=== PATIENT | female | born 1945 | race Caucasian/White ===

== ENCOUNTER → 2023-11-05 07:04 | Outpatient (REF) | payer MEDICARE, SELFPAY | LOC: PAVMRI 07:04 | PROVIDERS: ATTENDING PHYSICIAN Pain Medicine Interventional Pain Medicine; FAMILY PHYSICIAN Nurse Practitioner Adult Health | DX: M54.16 Radiculopathy, lumbar region (principal) | CPT/HCPCS: 72148 ==

== ENCOUNTER → 2024-02-02 14:50 | Outpatient (REF) | payer MEDICARE, SELFPAY | LOC: RCS 14:50 | PROVIDERS: ATTENDING PHYSICIAN Nurse Practitioner Adult Health | DX: I08.0 Rheumatic disorders of both mitral and aortic valves (principal); I44.7 Left bundle-branch block, unspecified | CPT/HCPCS: 93306 ==

== ENCOUNTER → 2024-03-24 09:17 | Outpatient (REF) | payer MEDICARE, SELFPAY | LOC: RAD 09:17 | PROVIDERS: ATTENDING PHYSICIAN Physician Assistant; FAMILY PHYSICIAN Nurse Practitioner Adult Health | DX: M80.00XA Age-related osteoporosis with current pathological fracture, unspecified site, initial encounter for fracture (principal); M81.0 Age-related osteoporosis without current pathological fracture | CPT/HCPCS: 77080 ==

== ENCOUNTER → 2024-03-30 11:09 | Outpatient (REF) | payer MEDICARE, SELFPAY | LOC: WDC 11:09 | PROVIDERS: ATTENDING PHYSICIAN Nurse Practitioner Adult Health | DX: Z12.31 Encounter for screening mammogram for malignant neoplasm of breast (principal) | CPT/HCPCS: 77063; 77067 ==

== ENCOUNTER → 2024-06-21 09:56 | Outpatient (REF) | payer MEDICARE, SELFPAY | LOC: RCS 09:56 | PROVIDERS: ATTENDING PHYSICIAN Nurse Practitioner Adult Health | DX: R00.2 Palpitations (principal) | CPT/HCPCS: 93225; 93226 ==

== ENCOUNTER → 2024-07-21 10:13 | Outpatient (REF) | payer MEDICARE, SELFPAY | LOC: RAD 10:13 | PROVIDERS: ATTENDING PHYSICIAN Nurse Practitioner Adult Health | DX: R31.29 Other microscopic hematuria (principal) | CPT/HCPCS: 76770 ==

== ENCOUNTER → 2024-08-22 14:19 | Outpatient (REF) | payer MEDICARE, SELFPAY | LOC: RAD 14:19 | PROVIDERS: ATTENDING PHYSICIAN Urology; FAMILY PHYSICIAN Nurse Practitioner Adult Health | DX: R31.0 Gross hematuria (principal) | CPT/HCPCS: 74178; Q9967 ==

== ENCOUNTER → 2024-09-19 10:19 | Outpatient (REF) | payer MEDICARE, SELFPAY ==
[2024-09-19 11:32] LABS: Hemoglobin 13.7 g/dL (12.0-16.0); Mean Corp Hgb Conc. 33.4 g/dL (33.0-37.0); Mean Corpuscular Hgb 32.7 pg (27.0-31.0); Mean Corpuscular Volume 97.9 fL (81.0-99.0); Platelet Count 159 10^3/uL (130-400); Red Blood Cell Count 4.19 10^6/uL (4.20-5.40); Red Cell Dist. Width 12.9 % (11.5-14.5); White Blood Cell Count 4.5 10^3/uL (4.8-10.8)
== END ==
LOC: SDSPAT 10:19
PROVIDERS: ATTENDING PHYSICIAN Surgery; FAMILY PHYSICIAN Nurse Practitioner Adult Health
DX: Z01.818 Encounter for other preprocedural examination (principal)
CPT/HCPCS: 36415; 85027; 93005

== ENCOUNTER 2024-09-29 06:14 | Day surgery (SDC) | payer MEDICARE, SELFPAY ==
[2024-09-19 14:08] VITALS: BMI 29.0
[2024-09-29] VITALS (8 sets, daily range): BP systolic 112–140; BP diastolic 59–76; BMI 29.0; BMI 29.6
[2024-09-29] MEDS: DETROL LA 4 MG PO (14:20)
[2024-09-29] MEDS: Pyridium 200 MG PO (14:20)
[2024-09-29] MEDS: TORADOL 15 MG IV (15:13)
== END 2024-09-29 16:00 | disposition home or self-care (01) ==
LOC: SDS 06:14
PROVIDERS: ATTENDING PHYSICIAN Surgery
DX: N13.2 Hydronephrosis with renal and ureteral calculous obstruction (principal)
CPT/HCPCS: 52356; 74018; 76000; A4300; C1758; C1894; C2617

== ENCOUNTER → 2025-04-04 11:10 | Outpatient (REF) | payer MEDICARE, SELFPAY | LOC: WDC 11:10 | PROVIDERS: ATTENDING PHYSICIAN Nurse Practitioner Adult Health | DX: Z12.31 Encounter for screening mammogram for malignant neoplasm of breast (principal) | CPT/HCPCS: 77063; 77067 ==